=== PATIENT | female | born 1975 | race Hispanic/Latino ===

== ENCOUNTER → 2021-06-22 | Outpatient (CLI) | payer OTHER, SELFPAY | END | disposition home or self-care (01) | LOC: RAH 08:16 | PROVIDERS: ATTEND Specialist | DX: Z12.31 Encounter for screening mammogram for malignant neoplasm of breast (principal) | CPT/HCPCS: 77067 ==

== ENCOUNTER → 2021-08-31 | Outpatient (CLI) | payer OTHER ==
[2021-08-31 18:15] LABS: HEPATITIS B CORE IGM ANTIBODY Non-Reactive (Negative)
[2021-09-01 07:25] LABS: HEPATITIS A ANTIBODY IGM Negative (Negative)
== END ==
LOC: RAH 10:00
PROVIDERS: ATTEND Internal Medicine
DX: R74.8 Abnormal levels of other serum enzymes (principal); K76.0 Fatty (change of) liver, not elsewhere classified; K80.20 Calculus of gallbladder without cholecystitis without obstruction
CPT/HCPCS: 36415; 76700; 82977; 86704; 86705; 86706; 86709

== ENCOUNTER → 2021-10-06 | Outpatient (CLI) | payer OTHER | END | disposition home or self-care (01) | LOC: LAB 11:51 | PROVIDERS: ATTEND Internal Medicine | DX: U07.1 COVID-19 (principal) | CPT/HCPCS: 87635; C9803 ==

== ENCOUNTER → 2022-12-04 | Outpatient (CLI) | payer OTHER ==
[2022-12-04 13:27] LABS: ADD UA MICROSCOPIC YES; APPEARANCE,URINE CLEAR (CLEAR); BILIRUBIN,URINE NEGATIVE (NEGATIVE); COLOR,URINE LIGHT-YELLOW (YELLOW); GLUCOSE, URINE (UA) NEGATIVE (NEGATIVE); KETONES,URINE NEGATIVE (NEGATIVE); LEUKOCYTE ESTERASE ,URINE 25 Leu/uL (NEGATIVE); NITRATE,URINE NEGATIVE (NEGATIVE); OCCULT BLOOD,URINE NEGATIVE (NEGATIVE); PH,URINE 6.5 (5.0-8.0); PROTEIN,URINE NEGATIVE (NEGATIVE); UROBILINOGEN,URINE 0.2 mg/dL (0.2-1.0)
[2022-12-04 13:28] LABS: MUCUS,URINE RARE LPF (None Seen); SQUAMOUS EPITHELIAL CELL,UR RARE /HPF (0-2)
[2022-12-04 13:36] LABS: BASOPHILS # (AUTO) 0.04 K/uL (0.00-0.20); BASOPHILS % (AUTO) 0.4 % (0.0-5.0); EOSINOPHILS % (AUTO) 2.1 % (0.0-8.0); HEMATOCRIT 41.1 % (36-48); IMMATURE GRANULOCYTE ABSOLUTE 0.05 K/uL (0-1); LYMPHOCYTES # (AUTO) 3.1 K/uL (1.0-4.8); LYMPHOCYTES % (AUTO) 32.3 % (21.0-51.0); MEAN CORPUSCULAR HEMOGLOBIN 28.2 pg (27.0-33.0); MEAN CORPUSCULAR HGB CONC 32.6 g/dL (32.0-36.0); MEAN CORPUSCULAR VOLUME 86.5 fL (79-99); MONOCYTES # (AUTO) 0.8 K/uL (0.1-1.0); MONOCYTES % (AUTO) 8.8 % (3.0-13.0); NEUTROPHILS # (AUTO) 5.3 K/uL (1.8-7.7); NEUTROPHILS % (AUTO) 55.9 % (40.0-77.0); PLATELET COUNT (AUTO) 329 K/uL (130-400); RED BLOOD CELL COUNT(AUTO) 4.75 MIL/uL (4.00-5.50); RED CELL DISTRIBUTION WIDTH 13.5 % (11.0-15.5); WHITE BLOOD COUNT (AUTO) 9.5 K/uL (4.8-10.8)
[2022-12-04 14:16] LABS: HEMOGLOBIN A1C 5.5 % (4.0-6.0)
[2022-12-04 14:30] LABS: ALBUMIN 3.5 g/dL (3.5-5.0); BILIRUBIN,TOTAL 0.4 mg/dL (0.2-1.0); CREATININE 0.9 mg/dL (0.5-1.5); POTASSIUM 3.9 mmol/L (3.5-5.1); TOTAL PROTEIN, SERUM 8.7 g/dL (6.0-8.3)
== END | disposition home or self-care (01) ==
LOC: LAB 07:31
PROVIDERS: ATTEND Internal Medicine
DX: Z00.00 Encounter for general adult medical examination without abnormal findings (principal)
CPT/HCPCS: 36415; 80053; 80061; 81001; 82043; 82570; 83036; 85025

== ENCOUNTER → 2023-01-09 | Outpatient (CLI) | payer OTHER ==
[2023-01-09 10:02] LABS: APPEARANCE,URINE CLEAR (CLEAR); BILIRUBIN,URINE NEGATIVE (NEGATIVE); GLUCOSE, URINE (UA) NEGATIVE (NEGATIVE); KETONES,URINE NEGATIVE (NEGATIVE); LEUKOCYTE ESTERASE ,URINE NEGATIVE Leu/uL (NEGATIVE); NITRATE,URINE NEGATIVE (NEGATIVE); OCCULT BLOOD,URINE NEGATIVE (NEGATIVE); PH,URINE 6.5 (5.0-8.0); PROTEIN,URINE NEGATIVE (NEGATIVE); UROBILINOGEN,URINE 0.2 mg/dL (0.2-1.0)
[2023-01-09 10:04] LABS: ADD UA MICROSCOPIC NO; COLOR,URINE YELLOW (YELLOW)
[2023-01-09 10:25] LABS: THYROID STIMULATING HORMONE 3.49 uIU/mL (0.36-3.74)
== END | disposition home or self-care (01) ==
LOC: RAH 10:00
PROVIDERS: ATTEND Obstetrics & Gynecology
DX: Z12.31 Encounter for screening mammogram for malignant neoplasm of breast (principal); Z01.419 Encounter for gynecological examination (general) (routine) without abnormal findings; N95.9 Unspecified menopausal and perimenopausal disorder
CPT/HCPCS: 36415; 77067; 81003; 83001; 83002; 84144; 84146; 84402; 84403; 84439; 84443; 84481; 86376

== ENCOUNTER → 2023-03-13 | Outpatient (CLI) | payer OTHER ==
[2023-03-13 09:45] LABS: BASOPHILS # (AUTO) 0.04 K/uL (0.00-0.20); BASOPHILS % (AUTO) 0.5 % (0.0-5.0); EOSINOPHILS # (AUTO) 0.15 K/uL (0.00-0.70); HEMATOCRIT 42.5 % (36-48); IMMATURE GRANULOCYTE ABSOLUTE 0.02 K/uL (0-1); LYMPHOCYTES # (AUTO) 2.9 K/uL (1.0-4.8); LYMPHOCYTES % (AUTO) 38.6 % (21.0-51.0); MEAN CORPUSCULAR HEMOGLOBIN 29.6 pg (27.0-33.0); MEAN CORPUSCULAR HGB CONC 33.2 g/dL (32.0-36.0); MEAN CORPUSCULAR VOLUME 89.3 fL (79-99); MONOCYTES # (AUTO) 0.7 K/uL (0.1-1.0); MONOCYTES % (AUTO) 9.9 % (3.0-13.0); NEUTROPHILS # (AUTO) 3.6 K/uL (1.8-7.7); NEUTROPHILS % (AUTO) 48.7 % (40.0-77.0); PLATELET COUNT (AUTO) 302 K/uL (130-400); RED BLOOD CELL COUNT(AUTO) 4.76 MIL/uL (4.00-5.50); RED CELL DISTRIBUTION WIDTH 13.3 % (11.0-15.5); WHITE BLOOD COUNT (AUTO) 7.4 K/uL (4.8-10.8)
[2023-03-13 09:55] LABS: INR 0.98 (0.85-1.15); PROTHROMBIN TIME 11.4 SEC (9.6-11.6)
[2023-03-13 10:02] LABS: ALBUMIN 3.6 g/dL (3.5-5.0); BILIRUBIN,TOTAL 0.3 mg/dL (0.2-1.0); CREATININE 0.9 mg/dL (0.5-1.5); POTASSIUM 4.1 mmol/L (3.5-5.1); TOTAL PROTEIN, SERUM 9.1 g/dL (6.0-8.3)
== END | disposition home or self-care (01) ==
LOC: LAB 08:46
PROVIDERS: ATTEND Nurse Practitioner Adult Health
DX: K76.0 Fatty (change of) liver, not elsewhere classified (principal)
CPT/HCPCS: 36415; 80053; 82105; 82977; 85025; 85610

== ENCOUNTER → 2024-01-17 | Outpatient (CLI) | payer OTHER ==
[2024-01-17 08:20] LABS: BASOPHILS # (AUTO) 0.06 K/uL (0.00-0.20); BASOPHILS % (AUTO) 0.9 % (0.0-5.0); EOSINOPHILS # (AUTO) 0.46 K/uL (0.00-0.70); EOSINOPHILS % (AUTO) 6.7 % (0.0-8.0); HEMATOCRIT 40.4 % (36-48); IMMATURE GRANULOCYTE ABSOLUTE 0.02 K/uL (0-1); LYMPHOCYTES # (AUTO) 2.3 K/uL (1.0-4.8); MEAN CORPUSCULAR HGB CONC 32.2 g/dL (32.0-36.0); MEAN CORPUSCULAR VOLUME 87.1 fL (79-99); MONOCYTES # (AUTO) 0.7 K/uL (0.1-1.0); MONOCYTES % (AUTO) 9.8 % (3.0-13.0); NEUTROPHILS # (AUTO) 3.4 K/uL (1.8-7.7); NEUTROPHILS % (AUTO) 49.3 % (40.0-77.0); PLATELET COUNT (AUTO) 315 K/uL (130-400); RED BLOOD CELL COUNT(AUTO) 4.64 MIL/uL (4.00-5.50); RED CELL DISTRIBUTION WIDTH 14.2 % (11.0-15.5); WHITE BLOOD COUNT (AUTO) 6.9 K/uL (4.8-10.8)
[2024-01-17 08:28] LABS: HEMOGLOBIN A1C 5.3 % (4.0-6.0)
[2024-01-17 08:46] LABS: ALBUMIN 3.4 g/dL (3.5-5.0); BILIRUBIN,TOTAL 0.4 mg/dL (0.2-1.0); THYROID STIMULATING HORMONE 4.86 uIU/mL (0.36-3.74); TOTAL PROTEIN, SERUM 8.7 g/dL (6.0-8.3)
== END | disposition home or self-care (01) ==
LOC: LAB 07:47
PROVIDERS: ATTEND Internal Medicine
DX: Z13.29 Encounter for screening for other suspected endocrine disorder (principal); E78.2 Mixed hyperlipidemia
CPT/HCPCS: 36415; 80053; 80061; 83036; 84443; 85025

== ENCOUNTER → 2024-02-14 | Outpatient (CLI) | payer OTHER ==
[2024-02-14 08:23] LABS: BASOPHILS # (AUTO) 0.03 K/uL (0.00-0.20); BASOPHILS % (AUTO) 0.5 % (0.0-5.0); EOSINOPHILS # (AUTO) 0.17 K/uL (0.00-0.70); EOSINOPHILS % (AUTO) 2.8 % (0.0-8.0); HEMATOCRIT 39.8 % (36-48); IMMATURE GRANULOCYTE ABSOLUTE 0.01 K/uL (0-1); LYMPHOCYTES % (AUTO) 32.6 % (21.0-51.0); MEAN CORPUSCULAR HEMOGLOBIN 27.8 pg (27.0-33.0); MEAN CORPUSCULAR HGB CONC 32.2 g/dL (32.0-36.0); MEAN CORPUSCULAR VOLUME 86.3 fL (79-99); MONOCYTES # (AUTO) 0.6 K/uL (0.1-1.0); MONOCYTES % (AUTO) 9.1 % (3.0-13.0); NEUTROPHILS # (AUTO) 3.4 K/uL (1.8-7.7); NEUTROPHILS % (AUTO) 54.8 % (40.0-77.0); PLATELET COUNT (AUTO) 348 K/uL (130-400); RED BLOOD CELL COUNT(AUTO) 4.61 MIL/uL (4.00-5.50); RED CELL DISTRIBUTION WIDTH 14.1 % (11.0-15.5); WHITE BLOOD COUNT (AUTO) 6.1 K/uL (4.8-10.8)
[2024-02-14 08:38] LABS: ALBUMIN 3.4 g/dL (3.5-5.0); BILIRUBIN,TOTAL 0.4 mg/dL (0.2-1.0); CREATININE 1.1 mg/dL (0.5-1.0); POTASSIUM 3.8 mmol/L (3.5-5.1); TOTAL PROTEIN, SERUM 8.7 g/dL (6.0-8.3)
[2024-02-14 08:40] LABS: INR 1.04 (0.85-1.15); PROTHROMBIN TIME 11.2 SEC (9.6-11.6)
[2024-02-14 08:43] LABS: % IRON SATURATION 21.4 % (22-44)
[2024-02-14 13:47] LABS: HEPATITIS A IGM ANTIBODY Non-Reactive (Nonreactive)
[2024-02-14 13:48] LABS: HEPATITIS B CORE AB TOTAL Non-Reactive (Nonreactive); HEPATITIS B CORE IGM ANTIBODY Non-Reactive (Negative); HEPATITIS B SURFACE ANTIBODY Negative (Reactive); HEPATITIS B SURFACE ANTIGEN Non-Reactive (Nonreactive); HEPATITIS C ANTIBODY Non-Reactive (Nonreactive)
[2024-02-19 16:12] LABS: ANTI-SCLERODERMA 70 <0.2 AI (0.0-0.9)
[2024-02-20 16:12] LABS: ALPHA-1-ANTITRYPSIN 147 mg/dL (101-187)
== END | disposition home or self-care (01) ==
LOC: RAH 07:57
PROVIDERS: ATTEND Internal Medicine
DX: K76.0 Fatty (change of) liver, not elsewhere classified (principal); K80.20 Calculus of gallbladder without cholecystitis without obstruction; K76.9 Liver disease, unspecified
CPT/HCPCS: 36415; 76700; 80053; 82103; 82104; 82105; 82390; 83540; 83550; 85025; 85610; 86015; 86038; 86215; 86235; 86376; 86381; 86704; 86705; 86706; 86709; 86803; 87340

== ENCOUNTER → 2024-03-10 | Outpatient (CLI) | payer OTHER ==
[~2024-03-10] MED LIST: IOHEXOL 350 MG/ML 100ML INFUS..BTL IV ONE
--- NOTE | 2024-03-10 10:07 | HMCIMG ---
CT ABDOMEN W/WO 3 PHASE REASON: Abnormal findings on diagnostic imaging of liver and biliar PANCREATIC PROT COMPARISON: None. TECHNIQUE: Images are obtained from lung bases through the iliac crests before, during and after IV contrast, 100 cc Omnipaque 350. Three-phase hepatic scanning technique was performed. FINDINGS: Lung bases are clear. There are no focal liver lesions. There are normal-appearing kidneys.. Spleen and pancreas appear unremarkable. There are some very small stones present within the gallbladder, no wall thickening or edema. There is mild epigastric lymphadenopathy. This consists of lymph nodes which appear increased in number but only mildly increased in size. The largest node is 1.8 cm, retrocaval at the level of the uncinate process of the pancreas. Remaining nodes are between 1 and 1.5 cm in size. These are in the krishna hepatis and around the head of the pancreas. There are no visible lymph nodes in the periaortic region. Bowel loops appear unremarkable. This includes normal appearance of the appendix There is no evidence of free fluid or intraperitoneal air. There are no focal fluid collections. Aorta and retroperitoneum appear otherwise normal. The anterior abdominal wall is intact. Osseous structures appear unremarkable. IMPRESSION: 1. Mild nonspecific lymphadenopathy in the epigastrium, lymph nodes appear increased in number but only mildly increased in size, largest is 1.8 cm, most are between 1 and 1.5 cm. 2. These are in the krishna hepatis and peripancreatic region, there is no periaortic lymphadenopathy. 3. Probable very small stones present within the gallbladder. 4. Otherwise unremarkable exam. CT was performed with one or more following dose reduction techniques: automated exposure control, adjustment of the mA and kv according to patient's size, or use of a iterative reconstruction technique.
== END | disposition home or self-care (01) ==
LOC: RAH 07:53
PROVIDERS: ATTEND Internal Medicine Gastroenterology
DX: R93.2 Abnormal findings on diagnostic imaging of liver and biliary tract (principal); K74.3 Primary biliary cirrhosis
CPT/HCPCS: 74170; 82306; Q9967

== ENCOUNTER → 2024-06-11 | Outpatient (CLI) | payer OTHER ==
[~2024-06-11] MED LIST changes: +IBUP-2077 PO; -IOHEXOL 350 MG/ML 100ML INFUS..BTL IV ONE
[2024-06-11 08:29] LABS: ALBUMIN 3.6 g/dL (3.5-5.0); CREATININE 1.1 mg/dL (0.5-1.0)
[2024-06-11 08:42] LABS: BILIRUBIN,TOTAL 0.3 mg/dL (0.2-1.0); TOTAL PROTEIN, SERUM 8.6 g/dL (6.0-8.3)
== END | disposition home or self-care (01) ==
LOC: LAB 07:25
PROVIDERS: ATTEND Internal Medicine Gastroenterology
DX: K74.3 Primary biliary cirrhosis (principal)
CPT/HCPCS: 36415; 80053; 82306

== ENCOUNTER 2024-06-15 12:25 | Emergency (ER) | payer OTHER ==
[~2024-06-15] VITALS: Ht 162.6 cm; Wt 76.2 kg
[2024-06-15] MEDS: ketOROlac 60 MG VIAL (30MG/ML) IM ONE (13:00)
--- NOTE | 2024-06-15 13:01 | ERN ---
ED Note History of Present Illness Stated Complaint: FOOT PAIN Chief Complaint: FOOT INJURY/PAIN Time Seen by MD: 12:29 Dictation: PATIENT IS A 48-YEAR-OLD FEMALE COMING IN TODAY WITH COMPLAINTS OF RIGHT LATERAL FOOT PAIN SWELLING AND LEFT LATERAL HIP PAIN STATUS POST SAME LEVEL TRIP FALL LAST NIGHT. NO SHORTENING OR ROTATION OF LEFT LEG PATIENT IS WEIGHT-BEARING WITH ANTALGIC GAIT. NEUROVASCULAR CMS INTACT TO ALL EXTREMITIES, SHE HAS NOT TAKEN ANYTHING PRIOR TO ARRIVAL FOR PAIN AND DROVE HERSELF TO THE HOSPITAL. Allergies: Coded Allergies: No Known Drug Allergies (Unverified Allergy, Unknown, 06/15/24) Past Medical History Past Medical History: Hypertension Surgical History: None History: Not Applicable RN Note Reviewed/Agreed w/PFSH: Yes Review of System Dictation CONSTITUTIONAL: NEGATIVE EXCEPT FOR HPI HEAD/FACE: NEGATIVE EXCEPT FOR HPI EENT: NEGATIVE EXCEPT FOR HPI RESPIRATORY: NEGATIVE EXCEPT FOR HPI GASTROINTESTINAL/ABDOMINAL: NEGATIVE EXCEPT FOR HPI GENITOURINARY: NEGATIVE EXCEPT FOR HPI MUSCULOSKELETAL: NEGATIVE EXCEPT FOR HPI LEFT HIP/RIGHT FOOT PAIN SWELLING INTEGUMENTARY: NEGATIVE EXCEPT FOR HPI NEUROLOGICAL/PSYCH: NEGATIVE EXCEPT FOR HPI HEMATOLOGIC/LYMPHATIC: NEGATIVE EXCEPT FOR HPI ALL SYSTEMS NEGATIVE, EXCEPT NOTED ABOVE. 13 POINT REVIEW OF SYSTEMS ASSESSED AND ALL NEGATIVE EXCEPT FOR ABOVE. Initial Vital Sign VS Vital Signs Date Time Temp Pulse Resp B/P (MAP) Pulse Ox O2 Delivery O2 Flow Rate FiO2 06/15/24 12:27 98.8 86 16 176/95 100 Room Air 06/15/24 15:24 0 21 Physical Exam Dictation VITAL SIGNS REVIEWED GENERAL APPEARANCE: ALERT, ORIENTED X 3, MODERATE ACUTE DISTRESS, WELL DEVELOPED, NOURISHED. PATIENT WALKS WITH A ANTALGIC GAIT HEAD AND FACE: NON-TRAUMATIC. EYES: PERRL, PINK CONJUNCTIVAS, EYELID NO TRAUMA, ANTERIOR CHAMBER WITH ARCUS SENILIS. EARS: PINNAS INTACT AND NO SIGNS OF TRAUMA OR ERYTHEMA EAR CANALS CLEAR AND NO DISCHARGE TM NO ERYTHEMA NOSE: NO DISCHARGE, NO BLEEDING. OROPHARYNX: MOUTH NORMAL, TONGUE PINK, PHARYNX CLEAR,NO ERYTHEMA, TONSILS NO EXUDATES, NO ABSCESSES NOTED, MUCOUS MEMBRANE MOIST NECK: SUPPLE, NON-TENDER, NO THYROMEGALY, NO MASSES, NO JVD, NO BRUITS BREAST:DEFERRED CHEST:NO TENDERNESS, NO CREPITUS, NO PARADOXICAL MOVEMENT, NO RETRACTIONS LUNGS:CLEAR, WELL-VENTILATED, SYMMETRIC, NO RALES, NO WHEEZING, NO RHONCHI, NO STRIDOR, GOOD BREATH SOUNDS BILATERALLY HEART: REGULAR RATE, REGULAR RHYTHM, NO MURMUR, NO GALLOPS VASCULAR: NO PERIPHERAL EDEMA, ABDOMEN: SOFT, POSITIVE BOWEL SOUNDS, NONDISTENDED, NO GUARDING, NONTENDER, NO REBOUND, NO MASSES NO HEPATOMEGALY, NO SPLENOMEGALY, NO BLANCHARD'S SIGN, NO HERNIAS. RECTAL: DEFERRED GENITAL: DEFERRED NEUROLOGICAL: NORMAL SPEECH, MOTOR FUNCTION INTACT, SENSORY FUNCTION INTACT MUSCULOSKELETAL: RIGHT LATERAL FOOT PAIN SWELLING. ALSO LEFT LATERAL HIP TENDERNESS WITH PALPATION. NO SHORTENING OR ROTATION OF LEFT LEG. NEUROVASCULAR CMS INTACT SKIN: COLOR PINK, DRY, NO TURGOR, NO RASH, NO LACERATIONS, NO ABRASIONS, NO CONTUSIONS. LYMPHATIC: DEFERRED Results (Laboratory/Radiology) Laboratory/Radiology HIP UNILAT 2-3VW LEFT INDICATION: LEFT LATERAL HIP PAIN TENDERNESS STATUS POST FALL YESTERDAY TECHNIQUE: HIP UNILAT 2-3VW LEFT. FINDINGS AND IMPRESSION: No displaced fracture or dislocation is seen. Correlate clinically. There is no joint effusion or soft tissue swelling. Tubal ligation changes are seen. PROCEDURE: FT 3VW RT - FOOT COMP 3+VWS RT FOOT COMP 3+VWS RT INDICATION: RIGHT LATERAL FOOT PAIN SWELLING STATUS POST FALL TECHNIQUE: FOOT COMP 3+VWS RT. FINDINGS AND IMPRESSION: No displaced fracture or dislocation is seen. Correlate clinically. There is mild soft tissue swelling No radiopaque foreign body is identified. Labs Reviewed?: Yes ED Course ED Course Orders Procedure Category Date Status Time Hip Unilat 2-3vw Left RAD 06/15/24 Resulted 12:58 Foot Comp 3+Vws Rt RAD 06/15/24 Resulted 12:58 Ketorolac 60mg/2ml PHA 06/15/24 Complete (Toradol 60mg/2ml) 13:00 Current Medications Medications (Trade) Dose Ordered Sig/Leah Route PRN Reason Start Time Stop Time Status Last Admin Dose Admin Ketorolac Tromethamine (toRADol 60MG/ 2ML) 60 mg ONCE ONCE IM 06/15/24 13:00 06/15/24 13:01 DC 06/15/24 13:00 Vital Signs Date Time Temp Pulse Resp B/P (MAP) Pulse Ox O2 Delivery O2 Flow Rate FiO2 06/15/24 15:24 98.1 77 14 159/91 100 Room Air* 0 21 06/15/24 12:27 98.8 86 16 176/95 100 Room Air 1550/spoke to patient regarding her x-rays of hip and right foot. She is aware there is no fractures and these are contusion and a foot sprain. She refused crutches and a splint said the police give her an excuse to continued go to work with loose fitting shoes and to see her doctor next week. Neurovascular CMS intact to her foot and left leg Medical Decision Making MDM Medical discharge making based on x-rays of all painful areas. X-rays negative Patient refused splint and crutches I will write her an excuse to wear loose-fitting shoes until cleared by her doctor and swelling goes down to her right foot. DX & DISP Disposition: Discharge Departure Impression: Primary Impression: Contusion of left hip, initial encounter Additional Impressions: Contusion of right foot, initial encounter, Fall Condition: Stable Scripts Ibuprofen (Ibuprofen 800 mg Tab) 800 Mg Tab 800 MG PO Q8H PRN for fever or pain, #30 TAB 0 Refills Prov: ALVIN MUNOZ NP 06/15/24 Additional Instructions: Follow-up with primary care provider in 1 to 2 days. Take medications as directed here in the emergency room. Okay to continue home medications unless otherwise discussed during your visit in the emergency room today. Return to your nearest emergency room if symptoms worsen or if there is no improvement. Call 911 if you need immediate assistance. Take Tylenol or Motrin [id number] as needed and if no contraindications are present. Increase or al hydration. A wound culture or urine culture was ordered here in the emergency room department please follow-up with primary care provider and advise them to get repeat ports from our facility. If you had any Tripp wrap/splints that were applied here, please do not remove them until you see your primary care or specialty. Ice and elevation three to 4 times a day. Do not wear tight-fitting shoes at work, take ibuprofen every 8 hours for the next three days with food. Activity as tolerated otherwise, see your primary care doctor for follow up Referrals: VIRGINIA DILLARD MD (PCP) Time of Disposition: 15:50 I have reviewed the case, and I agree with, Diagnosis and Plan ALVIN MUNOZ NP Jun 15, 2024 13:01
--- NOTE | 2024-06-15 15:16 | HMCIMG ---
FOOT COMP 3+VWS RT INDICATION: RIGHT LATERAL FOOT PAIN SWELLING STATUS POST FALL TECHNIQUE: FOOT COMP 3+VWS RT. FINDINGS AND IMPRESSION: No displaced fracture or dislocation is seen. Correlate clinically. There is mild soft tissue swelling No radiopaque foreign body is identified.
--- NOTE | 2024-06-15 15:16 | HMCIMG ---
HIP UNILAT 2-3VW LEFT INDICATION: LEFT LATERAL HIP PAIN TENDERNESS STATUS POST FALL YESTERDAY TECHNIQUE: HIP UNILAT 2-3VW LEFT. FINDINGS AND IMPRESSION: No displaced fracture or dislocation is seen. Correlate clinically. There is no joint effusion or soft tissue swelling. Tubal ligation changes are seen.
[2024-06-15 15:24] VITALS: BP 159/91; PULSE 77; RESP 14; TEMP 98.1; O2SAT 100
[2024-06-15] MEDS ORDERED: IBUP-2077 PO (15:51)
== END 2024-06-15 16:35 | disposition home or self-care (01) ==
LOC: EDH 12:25
DX: S70.02XA Contusion of left hip, initial encounter (principal); S90.31XA Contusion of right foot, initial encounter; I10 Essential (primary) hypertension; W18.39XA Other fall on same level, initial encounter; Y93.89 Activity, other specified; Y92.89 Other specified places as the place of occurrence of the external cause; Y99.8 Other external cause status
CPT/HCPCS: 99284; 73630; 73502; 96372; J1885

== ENCOUNTER → 2024-07-01 | Outpatient (CLI) | payer OTHER ==
[~2024-07-01] MED LIST changes: +IOHEXOL 350 MG/ML 100ML INFUS..BTL IV ONE
--- NOTE | 2024-07-01 12:38 | HMCIMG ---
CT ABDOMEN WITHOUT AND WITH CONTRAST INDICATION: Abnormal findings on diagnostic imaging of the liver and biliary system. Pancreatic protocol. TECHNIQUE: Routine transaxial images at 5 mm slice thickness as well as dedicated thin-slice axial imaging were obtained prior to the administration of contrast material through the abdomen only, and after the intravenous infusion of 100 mL of Omnipaque 350 through the abdomen only without adverse effects. Delayed images of the abdomen were also obtained. Coronal and sagittal reformatted imaging acquired for interpretation. CT was performed with one or more of the following dose reduction techniques: Automated exposure control, adjustment of the mA and/or kV according to patient size, or use of iterative reconstruction technique. COMPARISON: 03/10/2024 FINDINGS: ABDOMEN: Heart size is normal. Visible lung bases are clear. The liver is normal in size and smooth in contour without lesions or biliary duct dilation. The spleen is normal in size without lesions. Miniscule calcific and noncalcific gallstones. The pancreas appears normal without pancreatic duct dilation. The adrenal glands appear normal. Both kidneys appear unremarkable. Cortical nephrograms are symmetric and normal in appearance bilaterally. A few lymph nodes along the gastrohepatic ligament as well as within the krisnha hepatis, but greatest short axis dimension measuring up to 8 mm. These remain unchanged when compared to the 2023 study. No evidence for intra-abdominal free air or organized fluid collection. Moderate stool burden. No aortic aneurysmal dilation or dissection identified. Visible osseous structures are intact. IMPRESSION: Normal CT appearance of the pancreas. A few stable lymph nodes along the gastrohepatic ligament as well as within the krishna hepatis, including greatest short axis dimension measuring up to 8 mm. Cholelithiasis.
== END | disposition home or self-care (01) ==
LOC: RAH 09:33
PROVIDERS: ATTEND Internal Medicine Gastroenterology
DX: K80.20 Calculus of gallbladder without cholecystitis without obstruction (principal); R93.2 Abnormal findings on diagnostic imaging of liver and biliary tract; R59.0 Localized enlarged lymph nodes
CPT/HCPCS: 74170; Q9967

== ENCOUNTER → 2025-04-02 | Outpatient (CLI) | payer OTHER ==
[~2025-04-02] MED LIST changes: -IOHEXOL 350 MG/ML 100ML INFUS..BTL IV ONE
[2025-04-02 09:15] LABS: IMMATURE GRANULOCYTE ABSOLUTE 0.01 K/uL (0-1); NUCLEATED RED BLOOD CELLS 0.0 % (0.0-0.19); PLATELET COUNT (AUTO) 272 K/uL (130-400); RED BLOOD CELL COUNT(AUTO) 4.72 MIL/uL (4.00-5.50); RED CELL DISTRIBUTION WIDTH 13.9 % (11.0-15.5); WHITE BLOOD COUNT (AUTO) 6.2 K/uL (4.8-10.8)
[2025-04-02 09:36] LABS: ASPARTATE AMINOTRANSFERASE 52.0 U/L (10-37); CREATININE 0.9 mg/dL (0.5-1.0); GLOMERULAR FILTR. RATE CALC 78.0 mL/min (>90); GLUCOSE,RANDOM 88.0 mg/dL (70-105); LDL DIRECT 97.0 mg/dL (0-99); SODIUM SERUM 140.0 mmol/L (136-145); TOTAL PROTEIN, SERUM 8.5 g/dL (6.0-8.3); UREA NITROGEN, BLOOD 11.0 mg/dL (7-18)
== END | disposition home or self-care (01) ==
LOC: LAB 08:23
PROVIDERS: ATTEND Internal Medicine
DX: I10 Essential (primary) hypertension (principal); E78.2 Mixed hyperlipidemia; R79.89 Other specified abnormal findings of blood chemistry; Z13.1 Encounter for screening for diabetes mellitus; Z12.11 Encounter for screening for malignant neoplasm of colon
CPT/HCPCS: 36415; 80053; 80061; 82043; 82570; 83036; 84443; 85025

== ENCOUNTER → 2025-04-15 | Outpatient (CLI) | payer OTHER | END | disposition home or self-care (01) | LOC: RAH 15:44 | PROVIDERS: ATTEND Internal Medicine | DX: Z12.31 Encounter for screening mammogram for malignant neoplasm of breast (principal) | CPT/HCPCS: 77067 ==